=== PATIENT | female | born 1995 | race Caucasian/White ===

== ENCOUNTER 2017-07-12 15:58 | Emergency (ER) | payer OTHER ==
[2017-07-12 16:17] VITALS: RESP 16
--- NOTE | 2017-07-12 17:37 | EDPHY ---
H & P Time Seen by Provider: 07/12/17 17:23 HPI/ROS: Chief complaint. Dizzy, blurry vision ROS Constitutional. no fever/chills, no weakness Eyes. Blurry vision with both eyes ENT. no sore throat, no nasal drainage Cardiovascular. no chest pain Respiratory. no shortness of breath, no cough Abdominal. no abdominal pain, no nausea/vomiting, no diarrhea . no problems urinating MS. no calf pain/swelling, no neck/back pain, no joint pain Skin. no rash Lymph. no swollen glands Neuro. Headache and dizzy symptoms HPI--22 year old female presents emergency department with 2 day history of dizziness. However she has blurry vision with both eyes. Comes and goes. It is hard to read the black board. She has foggy mentation. She was seen at work and [place] yesterday and possible diagnosis of vertigo but not treated. She has had no recent fever cough or head injury. Her dizziness is described as a sense of movement. She has had migraines in the past but this is different. Her headache comes and goes Past Medical/Surgical History: Healthy with occasional migraine Social History: Single, nonsmoker, no alcohol Smoking Status: Never smoked Physical Exam: General Appearance: Alert well-developed female mild distress vital signs are stable Eyes: Pupils equal and round no pallor or injection. No nystagmus ENT, Mouth: Mucous membranes are moist. Respiratory: There are no retractions, lungs are clear to auscultation. Cardiovascular: Regular rate and rhythm. Gastrointestinal: Abdomen is soft and nontender, no masses, bowel sounds normal. Neurological: Awake and alert, sensory and motor exams grossly normal. Speech is normal. Cranial nerves are normal there is no pronator drift. Finger-to- nose [id number] are intact bilaterally Skin: Warm and dry, no rashes. Musculoskeletal: Neck is supple nontender. Extremities symmetrical, full range of motion. Psychiatric: Patient is oriented X 3, there is no agitation. Constitutional: Initial Vital Signs Temperature (C) 37 C 07/12/17 16:13 Heart Rate 62 07/12/17 16:13 Respiratory Rate 16 07/12/17 16:13 Blood Pressure 104/67 07/12/17 16:13 O2 Sat (%) 95 07/12/17 16:13 O2 Delivery Mode Room Air Allergies/Adverse Reactions: No Known Allergies Allergy (Unverified 07/12/17 16:13) Home Medications: Medication Instructions Recorded Meclizine HCl 25 mg PO Q6-8PRN PRN #10 tablet 07/12/17 Medical Decision Making - Diagnostics EKG Interpretation: EKG is interpreted by me and shows normal sinus rhythm with normal interval and axis. QRS is normal there is no significant ST elevation or depression. No arrhythmia. Rate is 63 Imaging Results: MRI brain is normal. Is reviewed by me and discussed with Dr. Robles Procedures: IV normal saline. Meclizine ED Course/Re-evaluation: Re-evaluation 9:35 p.m.. Patient and I discussed imaging and lab results. We discussed treatment plan including criteria for return importance of follow-up further evaluate way lange. She expresses understanding and agreement Patient looks well Differential Diagnosis: I considered central causes of vertigo , tumor, bleeding, migraine. This may represent a peripheral vertigo or migraine - Data Points Laboratory Results: Laboratory Results 07/12/17 18:00 07/12/17 18:00 07/12/17 07/12/17 07/12/17 18:00 18:00 18:00 WBC 10.37 10^3/uL H 10^3/uL (3.80-9.50) RBC 5.05 10^6/uL 10^6/uL (4.18-5.33) Hgb 15.8 g/dL g/dL (12.6-16.3) Hct 44.6 % % (38.0-47.0) MCV 88.3 fL fL (81.5-99.8) MCH 31.3 pg pg (27.9-34.1) MCHC 35.4 g/dL g/dL (32.4-36.7) RDW 12.6 % % (11.5-15.2) Plt Count 229 10^3/uL 10^3/uL (150-400) MPV 10.8 fL fL (8.7-11.7) Neut % (Auto) 66.6 % % (39.3-74.2) Lymph % (Auto) 25.0 % % (15.0-45.0) [place] % (Auto) 6.8 % % (4.5-13.0) Eos % (Auto) 0.8 % % (0.6-7.6) Baso % (Auto) 0.4 % % (0.3-1.7) Nucleat RBC Rel Count 0.0 % % (0.0-0.2) Absolute Neuts (auto) 6.92 10^3/uL H 10^3/uL (1.70-6.50) Absolute Lymphs (auto) 2.59 10^3/uL 10^3/uL (1.00-3.00) Absolute Monos (auto) 0.70 10^3/uL 10^3/uL (0.30-0.80) Absolute Eos (auto) 0.08 10^3/uL 10^3/uL (0.03-0.40) Absolute Basos (auto) 0.04 10^3/uL 10^3/uL (0.02-0.10) Absolute Nucleated RBC 0.00 10^3/uL 10^3/uL (0-0.01) Immature Gran % 0.4 % % (0.0-1.1) Immature Gran # 0.04 10^3/uL 10^3/uL (0.00-0.10) Sodium 141 mEq/L mEq/L (134-144) Potassium 3.7 mEq/L mEq/L (3.5-5.2) Chloride 101 mEq/L mEq/L (97-110) Carbon Dioxide 22 mEq/l mEq/l (22-31) Anion Gap 18 mEq/L H mEq/L (8-16) BUN 13 mg/dL mg/dL (7-23) Creatinine 0.8 mg/dL mg/dL (0.6-1.0) Estimated GFR > 60 Glucose 80 mg/dL mg/dL (70-100) Calcium 10.7 mg/dL H mg/dL (8.5-10.4) Phosphorus 4.1 mg/dL mg/dL (2.5-4.5) Beta HCG, Qual NEGATIVE Medications Given: Discontinued Medications Sodium Chloride (Ns) 1,000 mls @ 0 mls/hr IV ONCE ONE; Wide Open PRN Reason: Protocol Stop: 07/12/17 18:01 Last Admin: 07/12/17 18:24 Dose: 1,000 mls Meclizine HCl (Meclizine Hcl) 25 mg PO EDNOW ONE Stop: 07/12/17 18:02 Last Admin: 07/12/17 18:24 Dose: 25 mg Departure - Departure Disposition: Home, Routine, Self-Care Clinical Impression: Visual changes, Vertigo Condition: Good Instructions: Vertigo (ED) Additional Instructions: Easy activity the next 2-3 days. Drink plenty of fluids and regular meals. Get plenty of sleep. Meclizine every 8 hours for dizziness. Return for worsening symptoms. Re-evaluation at [facility] in 1-2 days if not improving Referrals: NONE *PRIMARY CARE P,. [Unknown] - As per Instructions [facility] [Outside] - 2-3 days, if not improved Prescriptions: Meclizine HCl 25 mg PO Q6-8PRN PRN #10 tablet PRN Reason: Dizziness
--- NOTE | 2017-07-12 17:41 | CPEKG ---
Heart Rate: 63 RR Interval: 952 P-R Interval: 148 QRSD Interval: 80 QT Interval: 428 QTC Interval: 439 P [place]: 69 QRS [place]: 70 T Wave [place]: 51 EKG Severity - BORDERLINE ECG - EKG Impression: SINUS RHYTHM EKG Impression: PROBABLE LEFT ATRIAL ABNORMALITY Electronically Signed By: Venancio Ritter 12-Jul-2017 21:08:13
[2017-07-12] MEDS ORDERED: NS 1,000 ML IV ONE (18:00)
[2017-07-12] MEDS ORDERED: MECLIZINE HCL 25 MG TAB PO ONE (18:01)
[2017-07-12 18:17] LABS: % IMMATURE GRANULYOCYTES 0.4 % (0.0-1.1); ABSOLUTE IMMATURE GRANULOCYTES 0.04 10^3/uL (0.00-0.10); ADD DIFF? NO; ADD MORPH? NO; ADD SCAN? NO; ATYPICAL LYMPHOCYTE FLAG 30 (0-99); FRAGMENT RBC FLAG 0 (0-99); HEMATOCRIT 44.6 % (38.0-47.0); HEMOGLOBIN 15.8 g/dL (12.6-16.3); LEFT SHIFT FLG 0 (0-99); LIPEMIA HEMOLYSIS FLAG 90 (0-99); MEAN CELL HEMOGLOBIN 31.3 pg (27.9-34.1); MEAN CELL HEMOGLOBIN CONCENTR. 35.4 g/dL (32.4-36.7); MEAN CELL VOLUME 88.3 fL (81.5-99.8); MEAN PLATELET VOLUME 10.8 fL (8.7-11.7); PLATELET CLUMPS FLAG 0 (0-99); PLATELET COUNT 229 10^3/uL (150-400); RED BLOOD CELL COUNT 5.05 10^6/uL (4.18-5.33); RED CELL DISTRIBUTION WIDTH 12.6 % (11.5-15.2)
[2017-07-12 18:28] VITALS: O2SAT 100
[2017-07-12 18:33] LABS: ANION GAP 18 mEq/L (8-16); CALCIUM 10.7 mg/dL (8.5-10.4); CARBON DIOXIDE 22 mEq/l (22-31); CHLORIDE 101 mEq/L (97-110); CREATININE 0.8 mg/dL (0.6-1.0); GLOMERULAR FILTRATION RATE > 60; GLUCOSE 80 mg/dL (70-100); POTASSIUM 3.7 mEq/L (3.5-5.2); SODIUM 141 mEq/L (134-144)
[2017-07-12] MEDS ORDERED: GADOBUTROL 10 ML VIAL IVP ONE (20:34)
[2017-07-12 21:46] VITALS: BP 114/81; PULSE 79; TEMP 98.1
== END 2017-07-12 21:47 | disposition home or self-care (01) ==
DX: R42 Dizziness and giddiness (principal); H53.8 Other visual disturbances; E86.9 Volume depletion, unspecified
CPT/HCPCS: A9585